=== PATIENT | female | born 2000 | race Hispanic/Latino ===

== ENCOUNTER 2022-05-24 18:30 | Emergency (ER) | payer OTHER ==
[2022-05-24] MEDS ORDERED: Ondansetron ODT 4 MG TAB ONE (19:39)
[2022-05-24 19:57] LABS: Bilirubin Neg (Negative); Blood, Urine 150 (Negative); Clarity Clear (Clear); Glucose, Urine (Dipstick) Normal (Negative); Ketone, Urine 150 mg/dL (Negative); Leukocyte Negative (Negative); Nitrite Negative (Negative); Protein, Urine (Dipstick) 15 mg/dl (Neg-Trace); Specific Gravity, Urine 1.015 (1.005-1.030); Urobilinogen Normal mg/dL (Less than 2)
[2022-05-24 20:06] LABS: #Monocytes 0.6 10x3/uL (0.0-1.1); %Basophils 0.2 % (0.0-2.0); %Lymphocytes 13.8 % (18.0-47.0); %Monocytes 4.9 % (0.0-10.0); %Neutrophils 80.8 % (40.0-75.0); Hemoglobin 13.6 g/dL (12.0-15.5); Mean Corpuscular HGB CONC 34.1 g/dL (32.0-36.0); Mean Corpuscular Hemoglobin 30.1 pg (27.0-33.0); Mean Corpuscular Volume 88.3 fl (81.6-98.3); Mean Platelet Volume 9.4 fl (7.4-10.4); Platelet Count 338 10x3/uL (150-450); RBC Distribution Width 11.8 % (11.5-14.5); Red Blood Cell (RBC) Count 4.52 10x6/uL (3.90-5.03); White Blood Cell (WBC) Count 12.3 10x3/uL (3.5-10.5)
[2022-05-24 20:13] LABS: Bacteria/HPF None Seen HPF (None Seen); RBC/HPF 0-3 HPF (0-3); WBC/HPF 0-3 HPF (0-3)
[2022-05-24 20:16] LABS: ALT (SGPT) 15 U/L (8-55); AST (SGOT) 15 U/L (5-34); Alkaline Phosphatase 41 U/L (40-110); Anion Gap 14 mmol/L (10-20); BUN (Urea Nitrogen) 8 mg/dL (7.0-18.7); Bilirubin, Total 0.5 mg/dL (0.2-1.2); Calc. Creatinine Clearance 0 mL/min (70-130); Calcium 9.4 mg/dL (7.8-10.44); Carbon Dioxide 24 mmol/L (22-29); Chloride 104 mmol/L (98-107); Estimated GFR 118; Globulin 3.5 g/dL (2.4-3.5); Glucose 104 mg/dL (70-105); Lipase 10 U/L (8-78); Potassium 3.1 mmol/L (3.5-5.1); Protein, Total 8.5 g/dL (6.0-8.3); Sodium 139 mmol/L (136-145)
[2022-05-24 20:28] LABS: Pregnancy Test - Urine (BHCG) Negative (Negative); Pregu Control Background? CLEAR/WHITE (CLR/WHITE); Pregu Control Bar Appear? YES (CONTROL BAR); Specific Gravity 1.015 (1.002-1.036)
[2022-05-24 20:50] LABS: SARS-CoV-2 NAA Rapid Test Not Detected (NotDetected)
== END 2022-05-24 21:00 | disposition home or self-care (01) ==
LOC: CSHERS 18:30
DX: R11.2 Nausea with vomiting, unspecified (principal); R19.7 Diarrhea, unspecified; Z20.822 Contact with and (suspected) exposure to COVID-19
CPT/HCPCS: 80053; 81003; 81015; 81025; 83690; 85025; 99284; Q0162

== ENCOUNTER 2022-05-25 07:55 | Inpatient (IN) | payer OTHER, SELFPAY ==
[2022-05-25] MEDS ORDERED: Ondansetron ODT 4 MG TAB ONE (08:12)
[2022-05-25] MEDS ORDERED: Iopamidol 300 61% 100 ML VIAL FS ONE (08:30)
[2022-05-25] MEDS ORDERED: Dexamethasone 10 MG/ML VIAL ONE (09:47)
[2022-05-25] MEDS ORDERED: Ondansetron PF 4 MG/2 ML Vial ONE (09:47)
[2022-05-25 10:11] LABS: ALT (SGPT) 15 U/L (8-55); AST (SGOT) 30 U/L (5-34); Albumin 4.7 g/dL (3.5-5.0); Alkaline Phosphatase 37 U/L (40-110); Anion Gap 17 mmol/L (10-20); BUN (Urea Nitrogen) 5 mg/dL (7.0-18.7); Bilirubin, Total 0.6 mg/dL (0.2-1.2); Calc. Creatinine Clearance 0 mL/min (70-130); Calcium 9.1 mg/dL (7.8-10.44); Carbon Dioxide 17 mmol/L (22-29); Chloride 107 mmol/L (98-107); Estimated GFR 118; Globulin 3.3 g/dL (2.4-3.5); Glucose 117 mg/dL (70-105); Sodium 138 mmol/L (136-145)
[2022-05-25 10:25] LABS: #Eosinphils 0.2 10x3/uL (0.0-0.5); #Monocytes 0.7 10x3/uL (0.0-1.1); #Neutrophils 8.9 10x3/uL (1.5-8.4); %Basophils 0.2 % (0.0-2.0); %Lymphocytes 11.3 % (18.0-47.0); %Monocytes 6.1 % (0.0-10.0); Hemoglobin 12.8 g/dL (12.0-15.5); Mean Corpuscular Hemoglobin 30.7 pg (27.0-33.0); Mean Corpuscular Volume 87.8 fl (81.6-98.3); Mean Platelet Volume 9.8 fl (7.4-10.4); Platelet Count 279 10x3/uL (150-450); RBC Distribution Width 11.9 % (11.5-14.5); Red Blood Cell (RBC) Count 4.17 10x6/uL (3.90-5.03); White Blood Cell (WBC) Count 11.2 10x3/uL (3.5-10.5)
[2022-05-25] MEDS ORDERED: Potassium Chloride 20 MEQ TAB ONE (11:03)
[2022-05-25] MEDS ORDERED: Metoclopramide HCl 10 MG/2 ML VIAL ONE (13:02)
[2022-05-25] MEDS ORDERED: diphenhydrAMINE 50 MG/ML VIAL ONE (13:02)
[2022-05-25] MEDS ORDERED: Senokot S 8.6-50 MG TAB PO PRN (17:10)
[2022-05-25 18:42] VITALS: BMI 25.4
[2022-05-25] MEDS: NS 0.9% w/ 40 MEQ KCL 1,000 ML IV SCH (18:45)
[2022-05-25] MEDS ORDERED: FLU VACC QS2022-23(6MOS UP)/PF 60 MCG/0.5 ML SYRINGE IM ONE (19:15)
[2022-05-25] MEDS: Ondansetron PF 4 MG/2 ML Vial IVP PRN (19:37)
[2022-05-25 20:21] LABS: Amphetamine Not Detected (NotDetected); Barbiturates Screen Not Detected (NotDetected); Benzodiazepine Screen Not Detected (NotDetected); Cocaine Metabolite Screen Not Detected (NotDetected); Methadone Not Detected (NotDetected); Methamphetamine Not Detected (NotDetected); Opiate Screen Not Detected (NotDetected); Oxycodone Screen Not Detected (NotDetected); Phencyclidine (PCP) Not Detected (NotDetected); THC/Cannabinoid Screen Detected (NotDetected); Tricyclic Screen Not Detected (NotDetected)
[2022-05-25] MEDS: Promethazine HCl 12.5 MG in Sodium Chloride 0.9% 50 ML IVPB PRN (20:55)
[2022-05-26 03:35] LABS: #Monocytes 0.9 10x3/uL (0.0-1.1); #Neutrophils 7.9 10x3/uL (1.5-8.4); %Basophils 0.1 % (0.0-2.0); %Lymphocytes 21.8 % (18.0-47.0); %Neutrophils 69.7 % (40.0-75.0); Mean Corpuscular HGB CONC 33.8 g/dL (32.0-36.0); Mean Corpuscular Hemoglobin 30.8 pg (27.0-33.0); Mean Platelet Volume 9.3 fl (7.4-10.4); Platelet Count 269 10x3/uL (150-450); RBC Distribution Width 12.1 % (11.5-14.5); White Blood Cell (WBC) Count 11.3 10x3/uL (3.5-10.5)
[2022-05-26] MEDS: Ondansetron PF 4 MG/2 ML Vial IVP PRN ×2 (03:49→13:24)
[2022-05-26 03:54] LABS: Anion Gap 13 mmol/L (10-20); BUN (Urea Nitrogen) 7 mg/dL (7.0-18.7); Calc. Creatinine Clearance 120 mL/min (70-130); Calcium 8.7 mg/dL (7.8-10.44); Carbon Dioxide 19 mmol/L (22-29); Chloride 109 mmol/L (98-107); Estimated GFR 125; Glucose 89 mg/dL (70-105); Potassium 4.1 mmol/L (3.5-5.1); Sodium 137 mmol/L (136-145)
[2022-05-26] MEDS: Promethazine HCl 12.5 MG in Sodium Chloride 0.9% 50 ML IVPB PRN ×3 (04:25→15:41)
[2022-05-26] MEDS: NS 0.9% w/ 40 MEQ KCL 1,000 ML IV SCH ×2 (05:25→15:41)
[2022-05-26] MEDS: Acetaminophen 325 MG TAB PO PRN (12:33)
[2022-05-27] MEDS: Promethazine HCl 12.5 MG in Sodium Chloride 0.9% 50 ML IVPB PRN ×3 (00:10→15:07)
[2022-05-27] MEDS: NS 0.9% w/ 40 MEQ KCL 1,000 ML IV SCH ×3 (00:19→23:23)
[2022-05-27] MEDS: Ondansetron PF 4 MG/2 ML Vial IVP PRN ×3 (07:51→20:21)
[2022-05-27] MEDS: Acetaminophen 325 MG TAB PO PRN (07:52)
[2022-05-27 10:27] LABS: #Monocytes 1.3 10x3/uL (0.0-1.1); %Basophils 0.1 % (0.0-2.0); %Eosinophils 0.2 % (0.0-6.0); %Lymphocytes 11.1 % (18.0-47.0); %Monocytes 10.1 % (0.0-10.0); Hemoglobin 13.5 g/dL (12.0-15.5); Mean Corpuscular HGB CONC 33.9 g/dL (32.0-36.0); Mean Corpuscular Hemoglobin 30.5 pg (27.0-33.0); Mean Corpuscular Volume 89.8 fl (81.6-98.3); Mean Platelet Volume 9.5 fl (7.4-10.4); Platelet Count 292 10x3/uL (150-450); RBC Distribution Width 11.9 % (11.5-14.5); Red Blood Cell (RBC) Count 4.43 10x6/uL (3.90-5.03); White Blood Cell (WBC) Count 12.8 10x3/uL (3.5-10.5)
[2022-05-27 10:47] LABS: Anion Gap 14 mmol/L (10-20); BUN (Urea Nitrogen) 6 mg/dL (7.0-18.7); Calc. Creatinine Clearance 118 mL/min (70-130); Calcium 9.1 mg/dL (7.8-10.44); Carbon Dioxide 21 mmol/L (22-29); Chloride 104 mmol/L (98-107); Estimated GFR 125; Glucose 91 mg/dL (70-105); Potassium 4.2 mmol/L (3.5-5.1); Sodium 135 mmol/L (136-145)
[2022-05-28] MEDS: Promethazine HCl 12.5 MG in Sodium Chloride 0.9% 50 ML IVPB PRN ×2 (02:06→10:08)
[2022-05-28] MEDS: Ondansetron PF 4 MG/2 ML Vial IVP PRN ×2 (05:26→15:11)
[2022-05-28] MEDS: NS 0.9% w/ 40 MEQ KCL 1,000 ML IV SCH ×2 (11:33→17:52)
[2022-05-28] MEDS: Ondansetron ODT 4 MG TAB PO SCH ×2 (19:04→22:12)
[2022-05-28] MEDS: Simethicone Chewable 80 MG TAB PO SCH ×2 (19:52→22:12)
[2022-05-28] MEDS: Promethazine HCl 12.5 MG, Admixture Fee 1 EACH in Sodium Chloride 0.9% 50 ML IVPB PRN (20:12)
[2022-05-29] MEDS: NS 0.9% w/ 40 MEQ KCL 1,000 ML IV SCH ×2 (01:20→08:13)
[2022-05-29] MEDS: Promethazine HCl 12.5 MG, Admixture Fee 1 EACH in Sodium Chloride 0.9% 50 ML IVPB PRN ×2 (02:50→08:55)
[2022-05-29] MEDS: Ondansetron ODT 4 MG TAB PO SCH (04:51)
[2022-05-29 07:56] VITALS: BP 117/79; TEMP 98.1
[2022-05-29] MEDS: Simethicone Chewable 80 MG TAB PO SCH (08:06)
== END 2022-05-29 11:15 | disposition home or self-care (01) | DRG 392 ==
LOC: CSHERS 07:55 → CSHPP 18:23 → OBSVTOIN 05-27 10:51
PROVIDERS: ADMIT Internal Medicine; ATTEND Family Medicine
DX: R11.2 Nausea with vomiting, unspecified (principal); F32.A Depression, unspecified; E87.6 Hypokalemia; R10.9 Unspecified abdominal pain; D72.829 Elevated white blood cell count, unspecified
CPT/HCPCS: 36415; 36416; 71045; 74177; 80048; 80053; 80306; 85025; 96361; 96374; 96375; 96376; G0378; J1100; J1200; J2405; J2550; J2765; J3480; Q0162; Q9967